=== PATIENT | female | born 1960 | race Caucasian/White ===

== ENCOUNTER 2020-07-17 12:40 | Emergency (ER) | payer OTHER ==
[~2020-07-17] VITALS: Ht 170.2 cm; Wt 70.2 kg
[2020-07-17 13:05] VITALS: BP 134/59
[2020-07-17] MEDS ORDERED: IOHEXOL 240 MG/ML 50ML VIAL. ONE (13:54)
[2020-07-17] MEDS ORDERED: IOHEXOL 300 MG/ML 75 ML VIAL. IV ONE (14:00)
[2020-07-17] MEDS ORDERED: CONTRAST GIVEN. MC PRN (14:00)
[2020-07-17 14:12] LABS: BASO # 0.1 x10^3/uL (0.0-0.2); BASO % 1 % (0-3); EOS # 0.1 x10^3/uL (0.0-0.7); EOS % 2 % (0-3); HEMATOCRIT 43.1 % (36.0-47.0); HEMOGLOBIN 14.5 g/dL (12.0-15.5); LYMPH % 11 % (24-48); MEAN CORPUSCULAR HEMOGLOBIN 31 pg (25-35); MEAN CORPUSCULAR HGB CONC 34 g/dL (31-37); MEAN CORPUSCULAR VOLUME 92 fL (79-100); MONO # 0.6 x10^3/uL (0.0-1.1); MONO % 7 % (0-9); NEUT % 80 % (31-73); PLATELET COUNT 257 x10^3/uL (140-400); RED BLOOD COUNT 4.69 x10^6/uL (3.50-5.40); RED CELL DISTRIBUTION WIDTH 13.5 % (11.5-14.5); WHITE BLOOD COUNT 8.8 x10^3/uL (4.0-11.0)
[2020-07-17 14:26] LABS: CALCIUM 8.8 mg/dL (8.5-10.1); CREATININE 0.6 mg/dL (0.6-1.0); GFR 102.7
[2020-07-17] MEDS ORDERED: ONDANSETRON PF 4 MG/2 ML VIAL. IVP ONE (14:30)
[2020-07-17 14:31] LABS: ALBUMIN 3.8 g/dL (3.4-5.0); ALBUMIN/GLOBULIN RATIO 1.1 (1.0-1.7); TOTAL PROTEIN 7.4 g/dL (6.4-8.2)
--- NOTE | 2020-07-17 14:41 | PHYS DOC ---
Past History Past Medical History: Constipation Past Surgical History: Tubal ligation Additional Smoking Information: 1/2-1ppd x 30 yrs Alcohol Use: Rarely Adult General Chief Complaint Chief Complaint: NAUSEA/VOMITING/[facility] HPI Patient is 60-year-old female who presents to the emergency room complaining of multiple abdominal symptoms. Patient states that they are currently traveling to their daughter's house. She states that she typically has some issues with constipation anytime she travels. She states that over the last couple days she has felt full like she may be she was having constipation. She took a laxative last night before she went to bed. She woke up in the middle of the night having severe abdominal pain. She states this lasted about 30 minutes she was then able to lay back down and get more sleep. She then woke up again having severe abdominal pain. She then had an episode of vomiting this morning. She has not had any further vomiting. She did develop more abdominal pain. Right after arrival she had a bunch of loose stool. She states that she does have some relief of symptoms after having a large bowel movement. She states the pain is in her epigastric and right upper quadrant with radiation to the back. She has never had anything like this before. Review of Systems Review of Systems Complete ROS is negative unless otherwise documented in HPI Current Medications Current Medications Current Medications Medications (Trade) Dose Ordered Sig/Lore Start Time Stop Time Status Last Admin Dose Admin Info (Do NOT chart on this entry -- for MONITORING) 1 each PRN DAILY PRN 07/17/20 14:00 07/19/20 13:59 Iohexol (Omnipaque 240 Mg/ml) 50 ml STK-MED ONCE 07/17/20 13:54 07/17/20 13:54 DC Iohexol (Omnipaque 300 Mg/ml) 75 ml 1X ONCE 07/17/20 14:00 07/17/20 14:01 DC Ondansetron HCl (Zofran) 4 mg 1X ONCE 07/17/20 14:30 07/17/20 14:31 UNV Allergies Allergies Allergies Coded Allergies Type Severity Reaction Last Updated Verified butorphanol Allergy Intermediate itching 07/17/20 Yes Physical Exam Physical Exam General: Awake, alert, NAD. Well Nourished, well hydrated. Cooperative HEENT: Atraumatic, EOMI, PERRL, airway patent, moist oral mucosa Neck: Supple, trachea midline Respiratory: CTA bilaterally, normal effort, no wheezing/crackles CV: RRR, no murmur, cap refill <2 GI: Soft, nondistended, right upper quadrant epigastric abdominal pain. MSK: No obvious deformities Skin: Warm, dry, intact Neuro: A&O x3, speech NL, sensory and motor grossly intact, no focal deficits Psych: Normal affect, normal mood, not suicidal or homicidal Current Patient Data Vital Signs Vital Signs Date Time Temp Pulse Resp B/P (MAP) Pulse Ox O2 Delivery O2 Flow Rate FiO2 07/17/20 13:05 97.7 72 134/59 (84) 98 07/17/20 13:04 20 Room Air Lab Results Laboratory Tests Test 07/17/20 13:25 White Blood Count 8.8 x10^3/uL (4.0-11.0) Red Blood Count 4.69 x10^6/uL (3.50-5.40) Hemoglobin 14.5 g/dL (12.0-15.5) Hematocrit 43.1 % (36.0-47.0) Mean Corpuscular Volume 92 fL (79-100) Mean Corpuscular Hemoglobin 31 pg (25-35) Mean Corpuscular Hemoglobin Concent 34 g/dL (31-37) Red Cell Distribution Width 13.5 % (11.5-14.5) Platelet Count 257 x10^3/uL (140-400) Neutrophils (%) (Auto) 80 % (31-73) H Lymphocytes (%) (Auto) 11 % (24-48) L Monocytes (%) (Auto) 7 % (0-9) Eosinophils (%) (Auto) 2 % (0-3) Basophils (%) (Auto) 1 % (0-3) Neutrophils # (Auto) 7.0 x10^3uL (1.8-7.7) Lymphocytes # (Auto) 1.0 x10^3/uL (1.0-4.8) Monocytes # (Auto) 0.6 x10^3/uL (0.0-1.1) Eosinophils # (Auto) 0.1 x10^3/uL (0.0-0.7) Basophils # (Auto) 0.1 x10^3/uL (0.0-0.2) Sodium Level 142 mmol/L (136-145) Potassium Level 4.0 mmol/L (3.5-5.1) Chloride Level 108 mmol/L (98-107) H Carbon Dioxide Level 23 mmol/L (21-32) Anion Gap 11 (6-14) Blood Urea Nitrogen 14 mg/dL (7-20) Creatinine 0.6 mg/dL (0.6-1.0) Estimated GFR (Cockcroft-Gault) 102.7 BUN/Creatinine Ratio 23 (6-20) H Glucose Level 96 mg/dL (70-99) Calcium Level 8.8 mg/dL (8.5-10.1) Total Bilirubin Pending Aspartate Amino Transferase (AST) Pending Alanine Aminotransferase (ALT) Pending Alkaline Phosphatase Pending Total Protein Pending Albumin Pending Albumin/Globulin Ratio Pending Lipase Pending EKG EKG [] Radiology/Procedures Radiology/Procedures [] Heart Score C/O Chest Pain: N/A Risk Factors: Risk Factors: DM, Current or recent (<one month) smoker, HTN, HLP, family history of CAD, obesity. Risk Scores: Risk Factors: DM, Current or recent (<one month) smoker, HTN, HLP, family history of CAD, obesity. Course & Med Decision Making Course & Med Decision Making Pertinent Labs and Imaging studies reviewed. (See chart for details) Patient is a 60-year-old female who presents to the emergency room complaining of severe intermittent abdominal pain since last night. She has had intermittent issues with abdominal pain and constipation since this started. Patient does have some upper abdominal tenderness. It is possible that her symptoms are secondary to the laxative use that she had last night. Will order CT abdomen pelvis and abdominal labs to evaluate for causes of abdominal pain. Patient's liver enzymes are elevated. Ultrasound was done of the gallbladder which shows cholelithiasis. This with the patient's elevated liver enzymes raises concerns for impending acute cholecystitis. CT also notes a splenic artery aneurysm. I have discussed the results with the patient. We have discussed that she likely will need admission. At this time they are trying to get back to [place] where they are from which is a [address]. They would like to leave here and go to the emergency room in their hometown. They are going to sign out AGAINST MEDICAL ADVICE. We did make a disc of the patient's images for them as well as printed out their lab work. At this time she does appear to be stable. Vitals are normal. Pain at this time is minimal. Dragon Disclaimer Dragon Disclaimer This electronic medical record was generated, in whole or in part, using a voice recognition dictation system. Departure Departure: Impression: Primary Impression: Cholelithiasis Additional Impression: Elevated LFTs Disposition: 07 AMA/ELOPED/LWBS Condition: STABLE Referrals: PCP,NO (PCP) Problem Qualifiers MACKENZIE MARIE MD Jul 17, 2020 14:40
--- NOTE | 2020-07-17 15:56 | RAD ---
CT SCAN OF THE ABDOMEN AND PELVIS WITH IV CONTRAST. History: Reason: abd pain, RUQ, epigastric / Spl. Instructions: / History: Comparison:None. Procedure: Contiguous axial images of the abdomen and pelvis were performed after the administration of 75 cc o f Isovue 370 IV contrast. Oral contrast: Yes. Findings: Liver: Unremarkable Spleen: Unremarkable Pancreas: Unremarkable Adrenal Glands: There is a 1.1 cm x 1.2 cm nodule in the left adrenal There is a 2.1 cm x 2.0 cm mass between the stomach and left adrenal which appears to be a splenic ar rafael aneurysm. Kidneys: Prominence of the renal pelvises is likely extra renal pelvises There is no mass or lymphadenopathy. There is no free air. There is no free fluid. The urinary bladder appears normal. The appendix is normal. The left colon is collapsed and not well evaluated. Impression: 1. Left upper quadrant mass is felt to be splenic artery aneurysm. Comparison to an old study would b e helpful. 2. Left adrenal nodule likely an adrenal adenoma. End impression PQRS Compliance Statement: One or more of the following individualized dose reduction techniques were utilized for this examinat ion: 1. Automated exposure control 2. Adjustment of the mA and/or kV according to patient size 3. Use of iterative reconstruction technique Electronically signed by: Sadi Velasco III, MD (07/17/2020 3:53 PM) [facility]
--- NOTE | 2020-07-17 16:53 | RAD ---
Exam: Ultrasound abdomen limited Indication: Right upper quadrant abdominal pain Technique: Real-time grayscale and color Doppler images of the right upper quadrant were obtained by the department hotel controller. Comparisons: None FINDINGS: Liver contour is normal. Mild increased echogenicity of the liver. Hepatopedal flow noted in the port al vein. Gallstones are noted within the gallbladder. No pericholecystic fluid or wall thickening. Common bile duct measures 4 mm in diameter. Right kidney measures 13.0 cm in length. No hydronephrosis. Visualized portions aorta and IVC are unremarkable. IMPRESSION: 1. Cholelithiasis without secondary evidence for acute cholecystitis. 2. Mild increased echogenicity of the liver, likely related to mild hepatic steatosis. 3. No right-sided hydronephrosis. Electronically signed by: Guido Alves MD (07/17/2020 4:50 PM) [facility]
[2020-07-17] MEDS ORDERED: oxyCODONE/APAP 5/325 1 TAB TABLET PO ONE (18:15)
== END 2020-07-17 18:47 | disposition home or self-care (01) ==
LOC: ER 12:40
DX: K80.20 Calculus of gallbladder without cholecystitis without obstruction (principal); R79.89 Other specified abnormal findings of blood chemistry; F17.200 Nicotine dependence, unspecified, uncomplicated; Z98.51 Tubal ligation status
CPT/HCPCS: 36415; 74177; 76705; 80053; 83690; 85025; 96374; 99285; J2405; Q9967